=== PATIENT | male | born 1995 | race Native Hawaiian/Other Pacific Islander ===

== ENCOUNTER 2017-07-12 03:05 | Emergency (ER) | payer SELFPAY ==
[2017-07-12 03:07] VITALS: BP 156/90; PULSE 80; RESP 16; TEMP 98.2; O2SAT 100
--- NOTE | 2017-07-12 03:39 | PD ---
HPI Chief Complaint: Oral / Dental Pain or Problem Time Seen by Provider: 03:32 Travel History International Travel<30 days: No Contact w/Intl Traveler<30days: No Traveled to known affect area: No History of Present Illness HPI This is a 21-year-old male presents for evaluation of right-sided facial/dental pain. Symptoms started 1 week ago. The pain is an aching pain that seems to localize to the right mandibular premolars but it radiates into the right side of his face. Pain is worse when exposed to cold air and somewhat relieved when he is exposed to cold fluids. He denies any facial injury, fevers or chills, cough or congestion, sore throat, rash, ear pain/pressure. He has tried using [id number]-[id number] Tylenol/NSAID medications with minimal relief which is what prompted evaluation today. He is currently on vacation from [place]. No other complaints. [facility] Past Medical History Medical History: Denies Significant Hx Diminished Hearing: No Past Surgical History Surgical History: No Previous Surgery Social History Alcohol Use: No Tobacco Use: No Substance Use: No Allergies-Medications (Allergen,Severity, Reaction): Coded Allergies: No Known Allergies (Unverified , 07/12/17) Reported Meds & Prescriptions Reported Meds & Active Scripts Active Magic Mouthwash Adult Liq (Multi-Ingredient Mouthwash/Gargle) 120 Ml Susp 10 Ml SWISH-SPIT ACHS Each 5mL contains: Nystatin 200,000units, Diphenhydramine 4.25mg, Viscous Lidocaine 10mg, Martiens syrup 0.8 mL Ibuprofen 800 Mg Tab 800 Mg PO Q6HR PRN Penicillin V Potassium 500 Mg Tab 500 Mg PO Q8H Tylenol-Codeine #3 (Acetaminophen-Codeine) 300-30 mg Tab 1-2 Tab PO Q6H PRN Review of Systems Except as stated in HPI: all other systems reviewed are Neg Physical Exam Narrative GENERAL: Well-developed well-nourished male in no acute distress SKIN: Warm and dry. HEAD: Atraumatic. Normocephalic. EYES: Pupils equal and round. No scleral icterus. No injection or drainage. ENT: No nasal bleeding or discharge. Mucous membranes pink and moist. Right mandibular second premolar has mild dental decay. There is localized surrounding gingival tenderness to palpation. There is no sublingual edema, no facial edema, no trismus. NECK: Trachea midline. No JVD. No adenopathy. CARDIOVASCULAR: Regular rate and rhythm. No murmur appreciated. RESPIRATORY: No accessory muscle use. Clear to auscultation. Breath sounds equal bilaterally. G Data Data Last Documented VS Vital Signs Date Time Temp Pulse Resp B/P (MAP) Pulse Ox O2 Delivery O2 Flow Rate FiO2 07/12/17 03:07 98.2 80 16 156/90 (112) 100 Room Air Orders Orders Bupivacaine Pf 0.5% Inj (Marcaine Pf 0.5 (07/12/17 03:45) Acetamin-Hydrocod 325-5 Mg ([place] 5-325 (07/12/17 04:00) Ondansetron Odt (Zofran Odt) (07/12/17 04:00) Penicillin V Potassium (Veetids) (07/12/17 04:00) [facility] Medical Decision Making Medical Screen Exam Complete: Yes Emergency Medical Condition: Yes Medical Record Reviewed: Yes Differential Diagnosis Dental caries, pulpitis, pericoronitis, periodontal abscess, TMJ dysfunction, neuralgia Narrative Course 21-year-old male here with dental pain. Examination reveals pain primarily localized to the right mandibular second premolar with mild dental decay. A inferior alveolar nerve block was performed with resolution of his pain. He is stable for discharge. Procedures Procedure Narrative Inferior alveolar nerve block: Performed utilizing 4 mL of 0.5% Marcaine. Patient tolerated procedure well. Diagnosis Primary Impression: Dentalgia Additional Instructions: Medication as prescribed. Follow up with a dentist. Return for any emergent medical conditions. Med/Other Pt SpecificInfo: Prescription(s) given Scripts Cloakvdx-Wbpdzokieynkuoi-Smbzbncud Liq (Magic Mouthwash Adult Liq) 120 Ml Susp 10 ML SWISH-SPIT ACHS for Mouth sores, #120 ML 1 Refill Each 5mL contains: Nystatin 200,000units, Diphenhydramine 4.25mg, Viscous Lidocaine 10mg, Martines syrup 0.8 mL Prov: Andreina Obando DO 07/12/17 Ibuprofen (Ibuprofen) 800 Mg Tab 800 MG PO Q6HR Y for PAIN, #40 TAB 0 Refills Prov: Andreina Obando DO 07/12/17 Penicillin V Potassium (Penicillin V Potassium) 500 Mg Tab 500 MG PO Q8H for Infection, #30 TAB 0 Refills Prov: Andreina Obando 07/12/17 Acetaminophen-Codeine (Tylenol-Codeine #3) 300-30 mg Tab 1-2 TAB PO Q6H Y for PAIN, #20 TAB 0 Refills Prov: Andreina Obando 07/12/17 Disposition: 01 DISCHARGE HOME Condition: Stable Silverio Davey Jul 12, 2017 03:39
[2017-07-12] MEDS ORDERED: BUPIVACAINE HCL PF 0.5% 10 ML VIAL INFIL ONE (03:45)
[2017-07-12] MEDS ORDERED: PENI500T PO (03:54)
[2017-07-12] MEDS ORDERED: MAGICADU2 SWISH-SPIT (03:54)
[2017-07-12] MEDS ORDERED: TYLETAB34 PO (03:54)
[2017-07-12] MEDS ORDERED: IBUP800T23 PO (03:54)
[2017-07-12] MEDS ORDERED: ACETAMINOPHEN/HYDROcodone 325 MG/5 MG TAB PO ONE (04:00)
[2017-07-12] MEDS ORDERED: ONDANSETRON ODT 4 MG TAB PO ONE (04:00)
[2017-07-12] MEDS ORDERED: PENICILLIN V POTASSIUM 500 MG TAB PO ONE (04:00)
== END 2017-07-12 04:19 | disposition home or self-care (01) ==
LOC: NEPD 03:05
DX: K08.89 Other specified disorders of teeth and supporting structures (principal); Z79.899 Other long term (current) drug therapy
CPT/HCPCS: 64400